=== PATIENT | female | born 1965 | race Two or more races ===

== ENCOUNTER 2019-05-14 19:11 | Emergency (ER) | payer OTHER ==
[~2019-05-14] VITALS: Ht 170.2 cm; Wt 86.0 kg
[2019-05-14] MEDS ORDERED: KETOROLAC 30MG/ML VIAL IV STA (19:58)
[2019-05-14] MEDS ORDERED: ASPIRIN 81MG TABLET PO ONE (20:00)
[2019-05-14 21:10] LABS: HEMOGLOBIN. 14.5 g/dL (12.0-16.0); LYMPHOCYTES % 44.8 % (20.0-50.0); MEAN CORPUSCULAR HEMOGLOBIN 31.3 pg (28.0-32.0); MEAN CORPUSCULAR VOLUME 88.7 fL (81.0-99.0); MEAN PLATELET VOLUME 9.1 fl (7.4-10.4); MONOCYTES % 6.4 % (2.0-8.0); NEUTROPHILS % 44.8 % (40.0-76.0); PLATELET 315 x1000/uL (130-400); RED BLOOD CELL COUNT 4.62 mill/uL (4.2-5.4); RED CELL DISTRIBUTION WIDTH 13.3 % (11.6-14.6)
[2019-05-14 21:16] LABS: CHLORIDE 112 mEq/L (98-107)
[2019-05-15 00:40] VITALS: BP 117/68
== END 2019-05-15 00:43 | disposition home or self-care (01) ==
LOC: ER 19:11
DX: R07.89 Other chest pain (principal); M79.602 Pain in left arm; Z86.73 Personal history of transient ischemic attack (TIA), and cerebral infarction without residual deficits; Z90.49 Acquired absence of other specified parts of digestive tract; Z86.718 Personal history of other venous thrombosis and embolism; Z79.01 Long term (current) use of anticoagulants
CPT/HCPCS: 36415; 71045; 80053; 83880; 84484; 85025; 93005; 96374; 99284; J1885; Z7610

== ENCOUNTER 2020-01-07 11:59 | Inpatient (IN) | payer MEDICAID, OTHER ==
[~2020-01-07] VITALS: Ht 167.6 cm; Wt 100.8 kg
[2020-01-07] MEDS ORDERED: ACETAMINOPHEN 325MG TABLET PO ONE (13:00)
[2020-01-07 13:31] LABS: BASOPHILS % 0.6 % (0.0-2.0); EOSINOPHILS % 2.1 % (0.0-5.0); HEMATOCRIT. 44.1 % (36.0-48.0); HEMOGLOBIN. 15.3 g/dL (12.0-16.0); LYMPHOCYTES % 36.8 % (20.0-50.0); MEAN CORPUSCULAR HEMOGLOBIN 31.3 pg (28.0-32.0); MEAN CORPUSCULAR VOLUME 90.1 fL (81.0-99.0); MEAN PLATELET VOLUME 8.1 fl (7.4-10.4); MONOCYTES % 4.7 % (2.0-8.0); NEUTROPHILS % 55.8 % (40.0-76.0); PLATELET 325 x1000/uL (130-400); RED BLOOD CELL COUNT 4.89 mill/uL (4.2-5.4); RED CELL DISTRIBUTION WIDTH 13.1 % (11.6-14.6)
[2020-01-07 13:37] LABS: CHLORIDE 110 mEq/L (98-107)
[2020-01-07 13:39] LABS: D-DIMER 0.23 mg/L FEU (<0.50); PROTHROMBIN TIME 10.5 sec (9.6-11.0)
[2020-01-07] MEDS ORDERED: HYDROCODONE/ACETAMINOPHEN 5/325MG TABLET PO ONE (13:45)
[2020-01-07] MEDS ORDERED: IBUPROFEN 400MG TABLET PO ONE (14:00)
[2020-01-07] MEDS ORDERED: ENOXAPARIN 100MG/ML SYR SUBCUT ONE (15:30)
[2020-01-07] MEDS ORDERED: MORPHINE SULFATE 2 MG/ML CPJ (NOT FOR IM USE) IV PRN (21:06)
[2020-01-08 08:00] VITALS: BP 107/72
[2020-01-08] MEDS ORDERED: HYDROCODONE/ACETAMINOPHEN 5/325MG TABLET PO PRN (08:45)
[2020-01-08] MEDS ORDERED: ACETAMINOPHEN 325MG TABLET PO PRN (08:45)
[2020-01-08] MEDS ORDERED: ONDANSETRON HCL 4MG/2ML INJ IV PRN (08:45)
[2020-01-08 09:27] LABS: LDL CHOLESTEROL 123 mg/dL (5-100)
[2020-01-08 09:29] LABS: HDL CHOLESTEROL 49 mg/dL (40-59)
[2020-01-08 11:47] VITALS: BP 137/71
[2020-01-08 11:49] VITALS: BP 137/71
[2020-01-08 12:00] VITALS: BP 141/81
[2020-01-08 16:00] VITALS: BP 120/70
[2020-01-08] MEDS ORDERED: IPRATROPIUM/ALBUTEROL 0.5-3(2.5)MG/3ML NEB HHN PRN (16:30)
[2020-01-08] MEDS ORDERED: RIVAROXABAN 20 MG TABLET PO SCH (17:00)
[2020-01-08 18:42] LABS: HEPATITIS B SURFACE ANTIGEN NEGATIVE
[2020-01-08 19:12] LABS: HEPATITIS A AB IGM NEGATIVE (NEGATIVE)
[2020-01-08 20:00] VITALS: BP 126/79
[2020-01-08] MEDS: LEVETIRACETAM 500MG TABLET PO SCH (20:21)
[2020-01-08] MEDS: TOPIRAMATE 25MG TABLET PO SCH (20:22)
[2020-01-08] MEDS: MORPHINE SULFATE 2 MG/ML CPJ (NOT FOR IM USE) IV PRN (20:32)
[2020-01-08] MEDS ORDERED: NORTRIPTYLINE HCL 25MG CAPSULE PO SCH (21:00)
[2020-01-08] MEDS ORDERED: LEVETIRACETAM 500MG TABLET PO SCH (21:00)
[2020-01-09 00:21] VITALS: BP 127/76
[2020-01-09] MEDS: MORPHINE SULFATE 2 MG/ML CPJ (NOT FOR IM USE) IV PRN ×3 (01:11→09:58)
[2020-01-09 04:00] VITALS: BP 128/82
[2020-01-09 08:00] VITALS: BP 108/69
[2020-01-09 09:35] LABS: CLARITY URINE CLEAR (CLEAR); COLOR URINE YELLOW (YELLOW); KETONES URINE NEGATIVE (NEGATIVE); LEUKOCYTE ESTERASE URINE TRACE (NEGATIVE); NITRITE URINE NEGATIVE (NEGATIVE); OCCULT BLOOD URINE NEGATIVE (NEGATIVE); PH URINE 6.5 (4.5-8.0); PROTEIN URINE NEGATIVE (NEGATIVE); SPECIFIC GRAVITY URINE 1.012 (1.005-1.030); UROBILINOGEN URINE 0.2 E.U./dL (0.2-1.0)
[2020-01-09 09:55] LABS: *AMPHETAMINES SCREEN URINE NEGATIVE (NEGATIVE); *BARBITURATES SCREEN URINE NEGATIVE (NEGATIVE); *BENZODIAZEPINES SCREEN URINE NEGATIVE (NEGATIVE); *COCAINE SCREEN URINE NEGATIVE (NEGATIVE)
[2020-01-09 09:56] LABS: CANNABINOID URINE SCREEN NEGATIVE (NEGATIVE); METHADONE URINE SCREEN NEGATIVE (NEGATIVE); OPIATES URINE SCREEN PRESUMTIVE POSITIVE (NEGATIVE); PHENCYCLIDINE URINE SCREEN NEGATIVE (NEGATIVE)
[2020-01-09] MEDS: TOPIRAMATE 25MG TABLET PO SCH (09:59)
[2020-01-09] MEDS: LEVETIRACETAM 500MG TABLET PO SCH (09:59)
[2020-01-09 12:00] VITALS: BP 118/70
[2020-01-09] MEDS ORDERED: HYDR-4001 MT (13:00)
[2020-01-09 15:38] VITALS: BP 118/70
== END 2020-01-09 14:40 | disposition home or self-care (01) | DRG 134 ==
LOC: ER 11:59 → 6WST 15:19 → ENRESERV 01-08 10:21 → 6WST 01-08 20:30
PROVIDERS: ADMIT Internal Medicine; ATTEND Internal Medicine
PROC: 4A00X4Z Measurement of Central Nervous Electrical Activity, External Approach (ICD-10-PCS; principal; 2020-01-09)
DX: I26.99 Other pulmonary embolism without acute cor pulmonale (principal); J96.00 Acute respiratory failure, unspecified whether with hypoxia or hypercapnia; E87.8 Other disorders of electrolyte and fluid balance, not elsewhere classified; E66.9 Obesity, unspecified; G40.909 Epilepsy, unspecified, not intractable, without status epilepticus; I10 Essential (primary) hypertension; E78.5 Hyperlipidemia, unspecified; R74.0 Nonspecific elevation of levels of transaminase and lactic acid dehydrogenase [LDH]; R07.89 Other chest pain; Z79.01 Long term (current) use of anticoagulants; Z86.718 Personal history of other venous thrombosis and embolism; Z86.73 Personal history of transient ischemic attack (TIA), and cerebral infarction without residual deficits; Z82.49 Family history of ischemic heart disease and other diseases of the circulatory system; Z68.35 Body mass index [BMI] 35.0-35.9, adult; Z88.8 Allergy status to other drugs, medicaments and biological substances; Z79.899 Other long term (current) drug therapy; Z90.49 Acquired absence of other specified parts of digestive tract; Z71.89 Other specified counseling
CPT/HCPCS: 36415; 70544; 70553; 71045; 78582; 80053; 80061; 80305; 81003; 83880; 84443; 84484; 85025; 85379; 86705; 86709; 86803; 87340; 93005; 93306; 93970; 99291; A9558; J1650; J2270

== ENCOUNTER 2020-02-02 22:23 | Emergency (ER) | payer MEDICAID ==
[~2020-02-02] VITALS: Ht 170.2 cm; Wt 200.0 kg
[~2020-02-02 22:23] MED LIST: HYDR-4001 MT
[2020-02-02 22:39] VITALS: BP 147/92
[2020-02-03] MEDS ORDERED: IBUPROFEN 600MG TABLET PO STA (01:21)
[2020-02-03 01:39] LABS: BASOPHILS % 0.9 % (0.0-2.0); EOSINOPHILS % 1.5 % (0.0-5.0); HEMATOCRIT. 44.4 % (36.0-48.0); HEMOGLOBIN. 15.5 g/dL (12.0-16.0); LYMPHOCYTES % 41.8 % (20.0-50.0); MEAN CORPUSCULAR HEMOGLOBIN 31.5 pg (28.0-32.0); MEAN CORPUSCULAR VOLUME 90.3 fL (81.0-99.0); MEAN PLATELET VOLUME 7.7 fl (7.4-10.4); NEUTROPHILS % 49.8 % (40.0-76.0); PLATELET 337 x1000/uL (130-400); RED BLOOD CELL COUNT 4.92 mill/uL (4.2-5.4)
[2020-02-03 01:45] LABS: CHLORIDE 106 mEq/L (98-107)
[2020-02-03 01:46] LABS: INR 1.2; PROTHROMBIN TIME 12.6 sec (9.6-11.0)
[2020-02-03] MEDS ORDERED: DIPHENHYDRAMINE 25MG CAPSULE PO ONE (02:45)
[2020-02-03] MEDS ORDERED: HYDROCODONE/ACETAMINOPHEN 5/325MG TABLET PO ONE (02:45)
[2020-02-03] MEDS ORDERED: IOHEXOL-350 100 ML BOTTLE ONE (03:58)
== END 2020-02-03 05:41 | disposition home or self-care (01) ==
LOC: ER 22:23
DX: R07.89 Other chest pain (principal); G40.909 Epilepsy, unspecified, not intractable, without status epilepticus; Z90.49 Acquired absence of other specified parts of digestive tract; Z98.890 Other specified postprocedural states; Z86.718 Personal history of other venous thrombosis and embolism; Z79.01 Long term (current) use of anticoagulants; Z91.041 Radiographic dye allergy status
CPT/HCPCS: 36415; 71275; 80053; 84484; 85025; 85610; 93005; 99284; Q0163; Q9967

== ENCOUNTER 2024-09-08 08:52 | Emergency (ER) | payer OTHER ==
[~2024-09-08] VITALS: Ht 167.6 cm; Wt 78.0 kg
[~2024-09-08 08:52] MED LIST changes: +ACET-2708 MT; +ATOR10TA PO; +LEVE500T19 MT; +NORT50CA PO; +OMEP20TA23 MT; +RIVA20TA PO; +TOPI50TA PO
[2024-09-08 08:54] VITALS: TEMP 98.3; O2SAT 98; O2SAT 99
[2024-09-08] MEDS: KETOROLAC 15MG/ML VIAL IV NR (10:15)
[2024-09-08 10:34] VITALS: BP 174/96; PULSE 89; RESP 17
[2024-09-08] MEDS: PROCHLORPERAZINE 10MG/2ML VIAL IM ONE (10:34)
[2024-09-08] MEDS: SUMATRIPTAN SUCCINATE 6MG/0.5ML VIAL SUBCUT ONE (10:34)
[2024-09-08] MEDS: KETOROLAC 15MG/ML VIAL IV ONE (10:34)
[2024-09-08] MEDS: DIPHENHYDRAMINE 25MG CAPSULE PO ONE (10:34)
[2024-09-08] MEDS: SUMATRIPTAN SUCCINATE 6MG/0.5ML VIAL SUBCUT NR (10:35)
[2024-09-08] MEDS: DIPHENHYDRAMINE 25MG CAPSULE PO NR (10:36)
[2024-09-08] MEDS ORDERED: IBUP-2029 MT (10:40)
[2024-09-08] MEDS ORDERED: SUMA25TA9 MT (10:40)
== END 2024-09-08 11:15 | disposition home or self-care (01) ==
LOC: ER 08:52
DX: G43.909 Migraine, unspecified, not intractable, without status migrainosus (principal); Z79.899 Other long term (current) drug therapy; Z86.718 Personal history of other venous thrombosis and embolism
CPT/HCPCS: 70450; 96372; 96374; 99285; Q0163; J1885; J0780; J3030; Z7610